=== PATIENT | female | born 1980 | race Caucasian/White ===

== ENCOUNTER 2017-11-19 19:45 | Inpatient (IN) | payer MEDICAID, OTHER ==
[~2017-11-19] VITALS: Ht 157.5 cm; Wt 84.6 kg
[~2017-11-19 19:45] MED LIST: ARIP15TA2 PO; FLUT16H NASAL; LEVO75TA10 PO; LORA10TA7 PO; OLAN10TA6 PO; TOPI100T37 PO; VENL-67 PO
[2017-11-19] MEDS ORDERED: PRAZ2 PO (20:20)
[2017-11-19] MEDS ORDERED: ARIP10TA8 PO (20:20)
[2017-11-19] MEDS ORDERED: TRAZ-147 PO (20:20)
[2017-11-19] MEDS ORDERED: VENL-68 PO (20:20)
[2017-11-19] MEDS ORDERED: LEVO50 PO (20:20)
[2017-11-19] MEDS ORDERED: ASPI-1182 PO (20:20)
[2017-11-19] MEDS ORDERED: ATOR20TA86 PO (20:20)
[2017-11-19] MEDS ORDERED: TOPI100T37 PO (20:20)
[2017-11-19] MEDS ORDERED: GABA-531 PO (20:20)
[2017-11-19] MEDS ORDERED: OLAN7.5T2 PO (20:20)
[2017-11-19] MEDS ORDERED: VENL-193 PO (20:20)
[2017-11-19] MEDS ORDERED: HALOPERIDOL 5 MG TABLET PO ONE (20:30)
[2017-11-19] MEDS ORDERED: LORazepam 1 MG TABLET PO ONE (20:30)
[2017-11-19] MEDS ORDERED: DiphenhydrAMINE HCL 25 MG CAPSULE PO ONE (20:30)
[2017-11-19 20:34] LABS: BASOPHILS % (AUTO) 0.9 % (0.0-2.0); EOSINOPHILS % (AUTO) 1.2 % (1.0-6.0); HEMOGLOBIN 13.3 g/dL (12.0-16.0); LYMPHOCYTES % (AUTO) 19.3 % (22.0-44.0); MEAN CORPUSCULAR HEMOGLOBIN 28.6 pg (26.0-34.0); MEAN CORPUSCULAR HGB CONC 34.2 G/dL (31.0-37.0); MEAN CORPUSCULAR VOLUME 84 fL (80-100); MONOCYTES # (AUTO) 0.6 K/uL (0.1-1.0); MONOCYTES % (AUTO) 6.1 % (2.0-9.0); NEUTROPHILS # (AUTO) 7.6 K/uL (1.8-7.7); NEUTROPHILS % (AUTO) 72.5 % (40.0-70.0); PLATELET COUNT (AUTO) 225 K/uL (150-450); RED BLOOD CELL COUNT(AUTO) 4.66 MIL/uL (4.00-5.20); RED CELL DISTRIBUTION WIDTH 14.4 % (11.5-14.5)
[2017-11-19 20:42] LABS: ANION GAP 11 mmol/L (8-16); CALCIUM, TOTAL 8.5 mg/dL (8.8-10.5); CARBON DIOXIDE 24 mmol/L (22-29); CHLORIDE 106 mmol/L (98-107); GLOMERULAR FILTR. RATE CALC > 60 mL/min (>60); GLUCOSE,RANDOM 96 mg/dL (70-110); POTASSIUM 3.6 mmol/L (3.5-5.1); SODIUM SERUM 141 mmol/L (136-145); UREA NITROGEN, BLOOD 15 mg/dL (7-18)
[2017-11-19 20:48] LABS: ALANINE AMINOTRANSFERASE 28 U/L (12-78); ALBUMIN 3.9 g/dL (3.4-5.0); ALKALINE PHOSPHATASE 67 U/L (46-116); ASPARTATE AMINOTRANSFERASE 15 U/L (15-37); BILIRUBIN,TOTAL 0.3 mg/dL (0.1-1.0); TOTAL PROTEIN, SERUM 7.2 g/dL (6.4-8.2)
[2017-11-19] MEDS ORDERED: HALOPERIDOL 5 MG TABLET PO PRN (21:00)
[2017-11-19] MEDS ORDERED: LORazepam 2 MG TABLET PO PRN (21:00)
[2017-11-19] MEDS ORDERED: ZOLPIDEM TARTRATE 10 MG TABLET PO PRN (21:00)
[2017-11-19 21:03] LABS: AMPHET/METH SCREEN,URINE NEGATIVE (NEGATIVE); BARBITURATE SCREEN, URINE NEGATIVE (NEGATIVE); BENZODIAZEPINES SCREEN,URINE NEGATIVE (NEGATIVE); CANNABINOID SCREEN,URINE NEGATIVE (NEGATIVE); COCAINE SCREEN,URINE NEGATIVE (NEGATIVE); METHADONE SCREEN, URINE NEGATIVE (NEGATIVE); OPIATE SCREEN,URINE NEGATIVE (NEGATIVE); PHENCYCLIDINE SCREEN,URINE NEGATIVE (NEGATIVE)
[2017-11-20 00:36] VITALS: BP 127/74
[2017-11-20 07:34] LABS: CHOL/HDL RATIO 2.2 (3.9-5.7); FREE T4 (FREE THYROXINE) 0.7 ng/dL (0.76-1.46); THYROID STIMULATING HORMONE 5.56 uIU/mL (0.36-3.74)
[2017-11-20 08:00] VITALS: BP 119/80
[2017-11-20] MEDS: LEVOTHYROXINE SODIUM 50 MCG TABLET PO SCH (11:14)
[2017-11-20] MEDS: ASPIRIN 81 MG EC TABLET PO SCH (11:16)
[2017-11-20] MEDS ORDERED: IBUPROFEN 400 MG TABLET PO PRN (16:00)
[2017-11-20] MEDS ORDERED: ACETAMINOPHEN 325 MG TABLET PO PRN (16:00)
[2017-11-20 20:03] VITALS: BP 125/69
[2017-11-20] MEDS: OLANZapine 10 MG TABLET PO SCH (21:19)
[2017-11-20] MEDS: ATORVASTATIN CALCIUM 20 MG TABLET PO SCH (21:20)
[2017-11-20] MEDS: PRAZOSIN HCL 2 MG CAPSULE PO SCH (21:20)
[2017-11-21] MEDS: LEVOTHYROXINE SODIUM 50 MCG TABLET PO SCH (06:59)
[2017-11-21] MEDS: ASPIRIN 81 MG EC TABLET PO SCH (08:41)
[2017-11-21] MEDS: VENLAFAXINE HCL 150 MG ER CAPSULE PO SCH (08:41)
[2017-11-21 09:51] VITALS: BP 101/65
[2017-11-21 17:21] VITALS: BP 124/72
[2017-11-21] MEDS: OLANZapine 10 MG TABLET PO SCH (20:40)
[2017-11-21] MEDS: PRAZOSIN HCL 2 MG CAPSULE PO SCH (20:40)
[2017-11-21] MEDS: ATORVASTATIN CALCIUM 20 MG TABLET PO SCH (20:40)
[2017-11-22] MEDS: LEVOTHYROXINE SODIUM 50 MCG TABLET PO SCH (07:05)
[2017-11-22] MEDS: ASPIRIN 81 MG EC TABLET PO SCH (09:08)
[2017-11-22] MEDS: VENLAFAXINE HCL 150 MG ER CAPSULE PO SCH (09:08)
[2017-11-22 11:41] VITALS: BP 106/58
[2017-11-22 16:00] VITALS: BP 137/71
[2017-11-22] MEDS: OLANZapine 10 MG TABLET PO SCH (21:26)
[2017-11-22] MEDS: ATORVASTATIN CALCIUM 20 MG TABLET PO SCH (21:27)
[2017-11-22] MEDS: PRAZOSIN HCL 2 MG CAPSULE PO SCH (21:27)
[2017-11-23] MEDS: LEVOTHYROXINE SODIUM 50 MCG TABLET PO SCH (06:54)
[2017-11-23] MEDS: ASPIRIN 81 MG EC TABLET PO SCH (08:49)
[2017-11-23] MEDS: VENLAFAXINE HCL 150 MG ER CAPSULE PO SCH (08:49)
[2017-11-23] MEDS ORDERED: OLAN10TA3 PO (11:55)
[2017-11-23 13:05] VITALS: BP 122/51
== END 2017-11-23 16:40 | disposition home or self-care (01) | DRG 750 ==
LOC: EMS 19:46 → 3EI 21:22
PROVIDERS: ADMIT Psychiatry & Neurology Psychiatry; ATTEND Psychiatry & Neurology Psychiatry
DX: F25.9 Schizoaffective disorder, unspecified (principal); R45.851 Suicidal ideations; Z91.19 Patient's noncompliance with other medical treatment and regimen; F32.9 Major depressive disorder, single episode, unspecified; E03.9 Hypothyroidism, unspecified; E78.00 Pure hypercholesterolemia, unspecified; E78.5 Hyperlipidemia, unspecified; G47.00 Insomnia, unspecified; K21.9 Gastro-esophageal reflux disease without esophagitis; Z91.5 Personal history of self-harm; Z88.2 Allergy status to sulfonamides; Z90.49 Acquired absence of other specified parts of digestive tract
CPT/HCPCS: 84439; 84443; 99285; G0480

== ENCOUNTER 2018-09-04 15:20 | Inpatient (IN) | payer MEDICAID, OTHER ==
[~2018-09-04] VITALS: Ht 160 cm; Wt 85.5 kg
[~2018-09-04 15:20] MED LIST changes: -ARIP15TA2 PO; +ASPI-1182 PO; +ATOR20TA86 PO; +BUPR150SR PO; +BUSP10TA23 PO; -FLUT16H NASAL; +GABA-531 PO; +LEVO50 PO; -LEVO75TA10 PO; -LORA10TA7 PO; -OLAN10TA6 PO; +OLAN5TAB40 PO; +OS500 PO; +PRAZ2 PO; -TOPI100T37 PO
[2018-09-04] MEDS ORDERED: PERTUSS(ACELL),DIPH,TET VAC/PF 0.5 ML VIAL IM ONE (16:30)
[2018-09-04] MEDS ORDERED: HALOPERIDOL 5 MG TABLET PO PRN (17:00)
[2018-09-04] MEDS ORDERED: ZOLPIDEM TARTRATE 10 MG TABLET PO PRN (17:00)
[2018-09-04] MEDS ORDERED: LORazepam 2 MG TABLET PO PRN (17:00)
[2018-09-04 17:02] LABS: BASOPHILS % (AUTO) 0.6 % (0.0-2.0); EOSINOPHILS % (AUTO) 1.4 % (1.0-6.0); HEMATOCRIT 40.3 % (36-46); HEMOGLOBIN 13.5 g/dL (12.0-16.0); LYMPHOCYTES # (AUTO) 2.8 K/uL (1.0-4.8); LYMPHOCYTES % (AUTO) 26.5 % (22.0-44.0); MEAN CORPUSCULAR HGB CONC 33.6 G/dL (31.0-37.0); MEAN CORPUSCULAR VOLUME 83 fL (80-100); MONOCYTES # (AUTO) 0.7 K/uL (0.1-1.0); MONOCYTES % (AUTO) 6.3 % (2.0-9.0); NEUTROPHILS % (AUTO) 65.2 % (40.0-70.0); PLATELET COUNT (AUTO) 249 K/uL (150-450); RED BLOOD CELL COUNT(AUTO) 4.84 MIL/uL (4.00-5.20); RED CELL DISTRIBUTION WIDTH 14.4 % (11.5-14.5)
[2018-09-04 17:16] LABS: AMPHET/METH SCREEN,URINE NEGATIVE (NEGATIVE); BARBITURATE SCREEN, URINE NEGATIVE (NEGATIVE); BENZODIAZEPINES SCREEN,URINE NEGATIVE (NEGATIVE); CANNABINOID SCREEN,URINE NEGATIVE (NEGATIVE); COCAINE SCREEN,URINE NEGATIVE (NEGATIVE); METHADONE SCREEN, URINE NEGATIVE (NEGATIVE); OPIATE SCREEN,URINE NEGATIVE (NEGATIVE)
[2018-09-04 17:19] LABS: ANION GAP 10 mmol/L (8-16); CALCIUM, TOTAL 8.6 mg/dL (8.8-10.5); CARBON DIOXIDE 26 mmol/L (22-29); CHLORIDE 108 mmol/L (98-107); CREATININE 0.88 mg/dL (0.60-1.30); GLOMERULAR FILTR. RATE CALC > 60 mL/min (>60); GLUCOSE,RANDOM 87 mg/dL (70-110); POTASSIUM 3.6 mmol/L (3.5-5.1); SODIUM SERUM 144 mmol/L (136-145); UREA NITROGEN, BLOOD 13 mg/dL (7-18)
[2018-09-04 17:22] LABS: PHENCYCLIDINE SCREEN,URINE NEGATIVE (NEGATIVE)
[2018-09-04 17:26] LABS: ALANINE AMINOTRANSFERASE 25 U/L (12-78); ALBUMIN 3.7 g/dL (3.4-5.0); ALKALINE PHOSPHATASE 77 U/L (46-116); ASPARTATE AMINOTRANSFERASE 17 U/L (15-37); BILIRUBIN,TOTAL 0.4 mg/dL (0.1-1.0); TOTAL PROTEIN, SERUM 7.2 g/dL (6.4-8.2)
[2018-09-05] MEDS ORDERED: PNEUMOCOCCAL VACCINE POLYVALENT 0.5 ML VIAL [PPSV23] IM ONE (13:00)
[2018-09-05 13:16] VITALS: BP 141/85
[2018-09-05 13:35] VITALS: BP 141/89
[2018-09-05] MEDS: VENLAFAXINE HCL 75 MG ER CAPSULE PO SCH (15:15)
[2018-09-05] MEDS: GABAPENTIN 300 MG CAPSULE PO SCH (16:26)
[2018-09-05] MEDS: BuPROPion HCL 150 MG SR TABLET PO SCH (16:27)
[2018-09-05] MEDS: BusPIRone HCL 10 MG TABLET PO SCH (16:27)
[2018-09-05] MEDS: OLANZapine 5 MG RAPDIS TABLET PO SCH (16:27)
[2018-09-05 16:37] VITALS: BP 148/85
[2018-09-05 17:42] VITALS: BP 148/85
[2018-09-05] MEDS: PRAZOSIN HCL 2 MG CAPSULE PO SCH (21:00)
[2018-09-06 08:36] VITALS: BP 122/80
[2018-09-06] MEDS: VENLAFAXINE HCL 75 MG ER CAPSULE PO SCH (09:23)
[2018-09-06] MEDS: BuPROPion HCL 150 MG SR TABLET PO SCH ×2 (09:24→16:01)
[2018-09-06] MEDS: GABAPENTIN 300 MG CAPSULE PO SCH ×2 (09:24→16:01)
[2018-09-06] MEDS: OLANZapine 5 MG RAPDIS TABLET PO SCH ×2 (09:24→16:01)
[2018-09-06] MEDS: BusPIRone HCL 10 MG TABLET PO SCH ×3 (09:24→16:01)
[2018-09-06 17:11] VITALS: BP 135/75
[2018-09-06 17:14] VITALS: BP 135/75
[2018-09-06] MEDS: PRAZOSIN HCL 2 MG CAPSULE PO SCH (20:46)
[2018-09-07 08:41] VITALS: BP 128/75
[2018-09-07] MEDS: GABAPENTIN 300 MG CAPSULE PO SCH ×2 (09:08→16:02)
[2018-09-07] MEDS: BuPROPion HCL 150 MG SR TABLET PO SCH ×2 (09:09→16:02)
[2018-09-07] MEDS: VENLAFAXINE HCL 75 MG ER CAPSULE PO SCH (09:09)
[2018-09-07] MEDS: OLANZapine 5 MG RAPDIS TABLET PO SCH ×2 (09:09→16:04)
[2018-09-07] MEDS: BusPIRone HCL 10 MG TABLET PO SCH ×3 (09:09→16:02)
[2018-09-07 16:00] VITALS: BP 155/93
[2018-09-07] MEDS: PRAZOSIN HCL 2 MG CAPSULE PO SCH (20:04)
[2018-09-08] MEDS: GABAPENTIN 300 MG CAPSULE PO SCH ×2 (08:25→16:15)
[2018-09-08] MEDS: VENLAFAXINE HCL 75 MG ER CAPSULE PO SCH (08:25)
[2018-09-08] MEDS: BusPIRone HCL 10 MG TABLET PO SCH ×3 (08:25→16:14)
[2018-09-08] MEDS: BuPROPion HCL 150 MG SR TABLET PO SCH ×2 (08:26→16:14)
[2018-09-08] MEDS: OLANZapine 5 MG RAPDIS TABLET PO SCH ×2 (08:26→16:16)
[2018-09-08] MEDS ORDERED: GABA-531 PO (09:08)
[2018-09-08] MEDS ORDERED: BUSP10TA23 PO (09:08)
[2018-09-08] MEDS ORDERED: OLAN5TAB30 PO (09:08)
[2018-09-08] MEDS ORDERED: PRAZ2 PO (09:08)
[2018-09-08] MEDS ORDERED: VENL75CA55 PO (09:08)
[2018-09-08] MEDS ORDERED: BUPR150SR PO (09:08)
== END 2018-09-08 16:15 | disposition home or self-care (01) | DRG 750 ==
LOC: EMS 15:20 → 3EI 09-05 10:22
DX: F25.1 Schizoaffective disorder, depressive type (principal); F79 Unspecified intellectual disabilities; E03.9 Hypothyroidism, unspecified; E78.00 Pure hypercholesterolemia, unspecified; E78.5 Hyperlipidemia, unspecified; T14.91XA Suicide attempt, initial encounter; X79.XXXA Intentional self-harm by blunt object, initial encounter; F41.9 Anxiety disorder, unspecified; Z79.899 Other long term (current) drug therapy; Z91.5 Personal history of self-harm; Z28.21 Immunization not carried out because of patient refusal; Z88.2 Allergy status to sulfonamides; Z90.49 Acquired absence of other specified parts of digestive tract; Y93.89 Activity, other specified; Y92.89 Other specified places as the place of occurrence of the external cause; Y99.8 Other external cause status
CPT/HCPCS: 90471; 90715; G0480